=== PATIENT | female | born 1970 | race Caucasian/White ===

== ENCOUNTER 2016-11-28 06:37 | Emergency (ER) | payer MEDICAID ==
[~2016-11-28] VITALS: Ht 177.8 cm; Wt 65.9 kg
[2016-11-28] MEDS ORDERED: ASPI81 PO (06:47)
[2016-11-28] MEDS ORDERED: DULO60CA44 PO (06:47)
[2016-11-28 07:46] VITALS: BP 159/88
== END 2016-11-28 08:24 | disposition home or self-care (01) ==
LOC: EMS 06:39
DX: S09.90XA Unspecified injury of head, initial encounter (principal); I51.9 Heart disease, unspecified; Z79.82 Long term (current) use of aspirin; W22.8XXA Striking against or struck by other objects, initial encounter; Y93.89 Activity, other specified; Y92.89 Other specified places as the place of occurrence of the external cause; Y99.8 Other external cause status
CPT/HCPCS: 99282